=== PATIENT | female | born 1980 | race Caucasian/White ===

== ENCOUNTER 2017-12-02 12:06 | Emergency (ER) | payer OTHER ==
[~2017-12-02] VITALS: Ht 160 cm; Wt 59.0 kg
[~2017-12-02 12:06] MED LIST: BENZONATATE200 M1 PO; CLEOCIN HCL300 MG PO; HYDROXYZINE HCL50 M1 PO; LEXAPRO 10MG10 MG PO; MOBIC15 M1 PO; NARCAN4 MG NAS; PERCOCET 325 MG1 TA2 PO; PERCOCET 5-3251 EACH PO; PROMETHAZINE HC25 M3 PO; TRAZODONE HCL50 M1 PO; VENTOLIN HFA18 GM INH; XANAX0.5 M1 PO; XANAX0.5 MG PO; XANAX1 MG PO; ZOFRAN ODT4 M1 SL
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
[2017-12-02 13:27] LABS: ABSOLUTE BASOPHIL COUNT 0 /CUMM (0.0-0.2); ABSOLUTE EOSINOPHIL COUNT 0 /CUMM (0.0-0.7); ABSOLUTE GRANULOCYTE CT 4.9 /CUMM (1.4-6.5); ABSOLUTE LYMPH COUNT 1.3 /CUMM (1.2-3.4); ABSOLUTE MONOCYTE COUNT 0.2 /CUMM (0.10-0.60); BASOPHIL % 0.4 % (0.0-2.0); EOSINOPHIL % 0.6 % (0-5); GRANULOCYTE % 75.9 % (42.2-75.2); HEMATOCRIT 41.9 % (37-47); MEAN CORPUSCULAR HGB 33.6 PG (27.0-31.0); MEAN CORPUSCULAR HGB CONC 33.1 G/DL (33.0-37.0); MEAN CORPUSCULAR VOLUME 101.5 FL (81.0-99.0); MEAN PLATELET VOLUME 7.1 FL (7.4-10.4); PLATELET COUNT 223 /CUMM (130-400); RBC DISTRIBUTION WIDTH 16.2 % (11.5-14.5); RED BLOOD CELL CT 4.13 /CUMM (4.20-5.40); WHITE BLOOD CELL COUNT 6.4 /CUMM (4.8-10.8)
--- NOTE | 2017-12-02 14:01 | CT SCAN REPORT ---
EXAMINATION: CT HEAD AND CERVICAL SPINE. CLINICAL INFORMATION: Status post fall. Head strike. Intoxication. COMPARISON: No relevant prior imaging. TECHNIQUE: Finishing Department Supervisor images were obtained. CT acquisition of the head and cervical spine was performed without intravenous administration of contrast. Data was reformatted into multiplanar images at the acquisition workstation. DLP: 966.06 mGy-cm. FINDINGS: Head: There is no acute intracranial hemorrhage or abnormal extra-axial collection. No intracranial mass effect or midline shift. Lateral and third ventricles are normal. No hydrocephalus. Pacheco-white matter differentiation is grossly preserved and there is no evidence of acute territorial infarct. The calvarium and skull base are intact. Mastoid air cells and middle ear cavities are well-aerated. Visualized paranasal sinuses are well-aerated. Cervical spine: There is nonspecific reversal of cervical lordosis. Alignment is otherwise normal. Vertebral heights are preserved. No evidence of acute fracture. No abnormal prevertebral soft tissue swelling. Grossly no evidence of canal compromise and no bony neuroforaminal encroachment. Soft tissues of the neck are unremarkable. Visualized lung apices are clear. IMPRESSION: Unremarkable CT scan of the head and cervical spine. No acute intracranial hemorrhage. No acute cervical spinal fracture.
[2017-12-02 19:58] VITALS: BP 130/66
== END 2017-12-02 19:54 ==
LOC: ERH 12:06
PROVIDERS: Physician Assistant
DX: F10.10 Alcohol abuse, uncomplicated (principal); F32.9 Major depressive disorder, single episode, unspecified; F17.210 Nicotine dependence, cigarettes, uncomplicated
CPT/HCPCS: 80307; 81001; 81025; G0480